=== PATIENT | male | born 1965 | race Caucasian/White ===

== ENCOUNTER 2016-06-01 17:33 | Emergency (ER) | payer OTHER ==
[~2016-06-01] VITALS: Ht 190.5 cm; Wt 88.5 kg
--- OUTSIDE RECORDS SUMMARY | 2016-06-01 17:38 | XMS REPORT | Continuity of Care Document ---
Author Author [facility] Address Unknown Phone Unavailable Allergies Active Description Code Type Severity Reaction Onset Reported/Identified Relationship to Patient Clinical Status Yes cephalexin Drug Allergy N/A N/A 01/29/2014 Medications Problems Date Dx Coded Attending Type Code Diagnosis Diagnosed By 07/31/2013 DAYAN ALEXANDER APRN 719.41 PAIN IN JOINT INVOLVING SHOULDER REGION 07/31/2013 ILDA NIELSON MD 719.41 PAIN IN JOINT INVOLVING SHOULDER REGION 07/31/2013 TONG FARLEY DO 719.41 PAIN IN JOINT INVOLVING SHOULDER REGION 12/05/2013 ILDA NIELSON MD 465.9 ACUTE UPPER RESPIRATORY INFECTIONS OF UNSPECIFIED SITE 12/05/2013 TONG FARLEY DO 465.9 ACUTE UPPER RESPIRATORY INFECTIONS OF UNSPECIFIED SITE 01/29/2014 TONG FARLEY DO 338.29 OTHER CHRONIC PAIN 01/29/2014 TONG FARLEY DO V70.0 ROUTINE GENERAL MEDICAL EXAMINATION AT A HEALTH CARE FACILITY 01/29/2014 TONG FARLEY DO V70.5 HEALTH EXAMINATION OF DEFINED SUBPOPULATIONS Procedures Code [place] [address] XRAY SHOULDER LEFT COMP 2 VIEWS 07/31/2013 Results Encounters ACCT No. Visit Date/Time Discharge Status Pt. Type Provider Facility Loc./Unit Complaint [id number] 01/29/2014 10:43:00 01/29/2014 23: 59:59 CLS Outpatient TONG FARLEY DO [id number] 12/05/2013 13:29:00 12/05/2013 23: 59:59 CLS Outpatient ILDA NIELSON MD [id number] 07/31/2013 08:34:00 07/31/2013 23: 59:59 CLS Outpatient DAYAN ALEXANDER APRN
[2016-06-01] MEDS ORDERED: HYDR-3816 PO (19:08)
[2016-06-01] MEDS ORDERED: CYCL10TA9 PO (19:08)
[2016-06-01] MEDS ORDERED: PRD20T PO (19:08)
--- NOTE | 2016-06-01 19:08 | ED Neck-Back Pain/Injury ---
General Chief Complaint: Upper Extremity Stated Complaint: R SIDE SHOULDER AND NECK SPASMS Nursing Triage Note: AMB TO ROOM REPORT THAT THIS WEEKEND WAS USING A CHAINSAW,AND SINCE THAN HAVING MUSCLE SPASM IN R SHOULDER Nursing Sepsis Screen: No Definite Risk Source of Information: Patient Exam Limitations: No Limitations History of Present Illness Time Seen by Provider: 18:51 Initial Comments here with report of muscle spasms and bilateral shoulders with right greater than left that spasms up into the neck on both sides. Onset on Wednesday after using a chainsaw and worsened over the weekend. 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 This caused him to jar his shoulders and neck and pain became worse. He has had previous history of injections to C5/C6 area many years ago but has not had 2 since. Denies numbness or tingling in his hands. Denies weakness. Denies balance or coordination problems. Denies difficulty with walking or going to the bathroom. Timing/Duration: 3-4 Days Severity: Moderate Pain/Injury Location: Back, Neck Associated Symptoms: muscle spasmsNo weakness, No sensory/motor loss, No loss of bladder control, No loss of bowel control Allergies and Home Medications Allergies Coded Allergies: cephalexin (Verified Allergy, Unknown, 06/01/16) Home Medications No Active Prescriptions or Reported Meds Constitutional: see HPINo chills, No fever, No weakness Respiratory: no symptoms reported Cardiovascular: no symptoms reported Gastrointestinal: no symptoms reported Musculoskeletal: see HPI back pain muscle pain muscle stiffnessNo muscle weakness, neck pain Psychiatric/Neurological: No Symptoms Reported Past Jodxyoc-Qmrtjn-Nwjskx Hx Patient Social History Alcohol Use: Denies Use Recreational Drug Use: No Smoking Status: Never a Smoker Recent Foreign Travel: No Contact w/Someone Who Travel: No Recent Infectious Disease Expo: No Recent Hopitalizations: No Surgeries HX Surgeries: Yes Surgeries: Appendectomy Respiratory Hx Respiratory Disorders: No Cardiovascular Hx Cardiac Disorders: No Neurological Hx Neurological Disorders: No Gastrointestinal Hx Gastrointestinal Disorders: No Endocrine Hx Endocrine Disorders: No Cancer Hx Cancer: No Psychosocial Hx Psychiatric Problems: No Blood Transfusions Hx Blood Disorders: No Reviewed Nursing Assessment Reviewed/Agree w Nursing PMH: Yes Family Medical History Significant Family History: No Pertinent Family Hx Physical Exam Vital Signs Vital Sign - Last 12Hours 06/01/16 18:05 Temp 97.9 Pulse 95 Resp 18 B/P 139/86 Pulse Ox 95 O2 Delivery Room Air Capillary Refill : Less Than 3 Seconds General Appearance: No Apparent Distress WD/WN Neck: Other (also spasms and tenderness to the lateral aspect of the neck to the shoulders with right greater than left.) Cardiovascular: Regular Rate, Rhythm No Murmur Respiratory: Lungs Clear Normal Breath Sounds Extremity: Normal Range of Motion Other (muscles along the area between the neck and shoulders bilaterally with tenderness and spasms) Neurologic/Psychiatric: Alert Oriented x3 No Motor/Sensory Deficits Other ( and good equal bilaterally and strong. Sensations intact bilaterally to and and legs.) Skin: Normal Color Warm/Dry Progress/Results/Core Measures Results/Orders Vital Signs/I&O Vital Sign - Last 12Hours 06/01/16 18:05 Temp 97.9 Pulse 95 Resp 18 B/P 139/86 Pulse Ox 95 O2 Delivery Room Air Blood Pressure Mean: 103 Progress Note : Progress Note seen and evaluated. Discharged home with return precautions. Patient verbalize understanding instructions and agreement with plan. Declines pain medicine here and states he will pick it up at the pharmacy. Departure Impression Impression: Primary Impression: Neck muscle strain Qualified Code: S16.1XXA - Strain of muscle, fascia and tendon at neck level, initial encounter Additional Impression: Muscle strain, shoulder region Qualified Code: S46.911A - Strain of unspecified muscle, fascia and tendon at shoulder and upper arm level, right arm, initial encounter Disposition: 01 HOME, SELF-CARE Condition: Improved Departure-Patient Inst. Decision time for Depature: 19:07 Referrals: [facility] (PCP/Family) Primary Care Physician Patient Instructions: Muscle Spasms (DC) Add. Discharge Instructions: All discharge instructions reviewed with patient and/or family. Voiced understanding. you may take ibuprofen 800 mg every 8 hours as needed for pain. Take other medications as directed. You may use the salon pass lidocaine patch to affected area per package directions. Rest tomorrow. Follow-up with your doctor and with an dairy management specialist as needed. Return for worse pain, weakness, numbness in her hands, difficulty with balance or going to the bathroom or other concerns as needed. Scripts Prednisone 20 Mg Tab40 Mg PO DAILY #14 TAB Prov:RENAN COTTO MD 06/01/16 Hydrocodone/Acetaminophen (Hydrocodon-Acetaminoph 7.5-325)1 Each Tablet1 Each PO Q6H #10 TAB Prov:RENAN COTTO MD 06/01/16 Cyclobenzaprine HCl 10 Mg Jqjhoq50 Mg PO Q8H PRN SPASMS #15 TAB Prov:RENAN COTTO MD 06/01/16 RENAN COTTO MD Jun 01, 2016 19:07
[2016-06-01 19:29] VITALS: BP 139/86
== END 2016-06-01 19:29 | disposition home or self-care (01) ==
LOC: EDUNIT# 17:33 → ER 17:35
DX: S16.1XXA Strain of muscle, fascia and tendon at neck level, initial encounter (principal); S46.911A Strain of unspecified muscle, fascia and tendon at shoulder and upper arm level, right arm, initial encounter; X50.3XXA Overexertion from repetitive movements, initial encounter; Y92.017 Garden or yard in single-family (private) house as the place of occurrence of the external cause; Y93.H9 Activity, other involving exterior property and land maintenance, building and construction; Y99.8 Other external cause status
CPT/HCPCS: 99282

== ENCOUNTER → 2016-06-15 | Outpatient (CLI) | payer OTHER ==
[~2016-06-15] MED LIST: CYCL10TA9 PO; HYDR-3816 PO; PRD20T PO
--- NOTE | 2016-06-15 17:12 | Diagnostic Imaging Report ---
PROCEDURE: MR imaging cervical spine without contrast. TECHNIQUE: Multiplanar, multisequence MR imaging of the cervical spine was performed without contrast. INDICATION: Right shoulder and neck pain. FINDINGS: The previous MRI cervical spine exam performed on 07/09/2009 noted a prominent disc protrusion to the left at C5-C6. This did result in severe spinal stenosis and encroachment of the exiting left nerve root. On this exam, the disc protrusion at the C5-C6 level seen previously is not identified. There is still a disc osteophyte complex eccentric to the left at C5-C6. The disc osteophyte complex indents the left ventral aspect of the thecal sac and narrows the AP diameter to approximately 9 mm. There is also narrowing of the neural foramen on the left at this level. There is no evidence for central stenosis at C6-C7, but there is narrowing of the neural foramina bilaterally at this level, particularly on the right. This finding has developed in the interval since the prior exam. Remainder of the cervical spine is unremarkable for spinal stenosis or nerve root encroachment. There is nothing seen in the cord or vertebral bodies to indicate an acute abnormality. There is no sign of a paraspinal mass. The expected carotid and vertebral flow voids are evident bilaterally. IMPRESSION: 1. The large disc protrusion to the left at C5-C6 seen previously is no longer evident. There is still a disc osteophyte complex on the left at this level and this does result in mild narrowing of the thecal sac. There is also some narrowing of the neural foramen on the left at this level. 2. In the interval since the previous exam, neuroforaminal narrowing on the right at C6-C7 has developed. There is no evidence for central stenosis at the C6-C7 level, however. 3. The remainder of the cervical spine is unremarkable for spinal stenosis or nerve root encroachment. 4. There is no sign of an acute bony abnormality or of a cord lesion. Dictated by: Dictated on workstation # [id number]
== END ==
LOC: RAD 12:14
PROVIDERS: ATTEND Nurse Practitioner Community Health
DX: M54.12 Radiculopathy, cervical region (principal)
CPT/HCPCS: 72141

== ENCOUNTER 2016-08-13 09:49 | Outpatient (CLI) | payer OTHER ==
[~2016-08-13] VITALS: Ht 190.5 cm; Wt 90.7 kg
[2016-08-13] MEDS ORDERED: MELO15TA39 PO (10:01)
[2016-08-13] MEDS ORDERED: HYDR-3816 PO (10:01)
[2016-08-13] MEDS ORDERED: GABA-488 PO (10:01)
[2016-08-13] MEDS ORDERED: CYCL10TA9 PO (10:01)
[2016-08-13 10:02] VITALS: BP 128/81
== END 2016-08-13 10:15 | disposition home or self-care (01) ==
LOC: PREOP 09:49
PROVIDERS: ATTEND Surgery
DX: Z01.818 Encounter for other preprocedural examination (principal); Z11.2 Encounter for screening for other bacterial diseases; D17.1 Benign lipomatous neoplasm of skin and subcutaneous tissue of trunk
CPT/HCPCS: 87081

== ENCOUNTER 2016-08-19 16:00 | Outpatient (RCR) | payer OTHER ==
[~2016-08-19 16:00] MED LIST changes: +GABA-488 PO; +MELO15TA39 PO
[2016-08-20] MEDS ORDERED: DOCU-143 PO (09:31)
[2016-08-20] MEDS ORDERED: HYDR-3812 PO (09:32)
== END 2016-08-19 16:54 | disposition home or self-care (01) ==
PROVIDERS: ATTEND Orthopaedic Surgery
DX: M54.2 Cervicalgia (principal)

== ENCOUNTER 2016-08-20 06:10 | Day surgery (SDC) | payer OTHER ==
[~2016-08-20] VITALS: Ht 190.5 cm; Wt 90.7 kg
[2016-08-20] MEDS: LACTATED RINGERS 1,000 ML IV PRN ×2 (06:45→09:50)
[2016-08-20 07:02] VITALS: BP 112/75
[2016-08-20] MEDS ORDERED: ONDANSETRON 4 MG/2 ML (SDV) Z0FRAN ONE (07:09)
[2016-08-20] MEDS ORDERED: LIDOCAINE PF 2% 5 ML (XYLOCAINE) VIAL ONE (07:09)
[2016-08-20] MEDS ORDERED: DEXAMETHASONE PF 10 MG/ML (DECADRON) VIAL ONE (07:09)
[2016-08-20] MEDS ORDERED: fentaNYL INJECTION 100 MCG/2 ML AMP ONE (07:09)
[2016-08-20] MEDS ORDERED: proPOfol 200 MG/20 ML (DIPRIVAN) VIAL IV ONE (07:09)
[2016-08-20] MEDS ORDERED: MIDAZOLAM 2 MG/2 ML (VERSED) VIAL ONE (07:10)
[2016-08-20] MEDS ORDERED: ROCURONIUM 50 MG/5 ML (ZEMURON) VIAL IV ONE (07:11)
[2016-08-20] MEDS ORDERED: BUPIVACAINE 0.5% 30 ML (SENSORCAINE) VIAL ONE (07:16)
[2016-08-20] MEDS ORDERED: LIDOCAINE 1% INJ 20 ML (XYLOCAINE) VIAL ONE (07:16)
[2016-08-20] MEDS ORDERED: CLINDAMYCIN 600 MG/4ML (CLEOCIN) VIAL ONE (07:34)
[2016-08-20] MEDS ORDERED: NS (IVPB) 50 ML ONE (07:34)
--- NOTE | 2016-08-20 07:43 | Progress Note-Pre Operative ---
Pre-Operative Progress Note H&P Reviewed The H&P was reviewed, patient examined and no changes noted. Date Seen by Provider: Aug 20, 2016 Time Seen by Provider: 07:35 Date H&P Reviewed: Aug 20, 2016 Time H&P Reviewed: 07:35 Pre-Operative Diagnosis: lipoma left shoulder, screening colonoscopy SANTHOSH HAYS DO Aug 20, 2016 7:43 am
[2016-08-20] MEDS ORDERED: CATHETER FLUSH 10 ML SYR IV PRN (07:45)
[2016-08-20] MEDS ORDERED: CLINDAMYCIN INJECTION 600 MG in NS (IVPB) 50 ML IV ONE (07:45)
[2016-08-20] MEDS ORDERED: SEVOFLURANE (ULTANE) 15 ML INHAL SOLN ONE (09:25)
[2016-08-20] MEDS ORDERED: DOCU-143 PO (09:31)
[2016-08-20] MEDS ORDERED: HYDR-3812 PO (09:32)
--- NOTE | 2016-08-20 09:35 | Discharge Inst-Simple/Standard ---
Discharge Inst-Standard Discharge Medications New, Converted or Re-Newed RX: RX on Chart Patient Instructions/Follow Up Plan of Care/Instructions/FU: Follow up for suture removal in 2 weeks Repeat colonoscopy in 10 years or sooner if chnages to current condition. Activity as Tolerated: No Discharge Diet: No Restrictions Other Inst to Patient Follow up Appt: Make appointment for 2 weeks. Instructions: No lifting greater than 10 pounds. No strenuous activity. May shower in 24 hours, no tub bath or soaking. Use incentive spirometer at home as directed. No Smoking Skin/Wound Care: May remove bandages. Keep incision clean and dry. Symptoms to Report: Appetite Changes, Extremity Discoloration, Numbness/Tingling, Swelling Increased , Bleeding Excessive, Eyesight Changes, Pain Increased, Urine Color Change, Constipation(Persistent), Fever over 101 degree F, Pain/Pressure in chest, Urinating Difficulty, Cough Up/Vomit Blood, Heart Beat Irreg/Pounding, Pain/ Pressure in jaw, Vaginal Bleeding Increase, Cramps in feet or legs, Lightheadedness, Pain/Pressure in shoulder, Diarrhea(Persistent), Memory Changes Suddenly, Questions/Concerns, Weight gain consecutive days, Dizziness/ Fainting, Nausea/Vomiting, Shortness of Breath, Weight gain over 2 pounds If questions or concerns contact your physician Or seek help at emergency department. KAREN MCHUGH APRN Aug 20, 2016 09:35
[2016-08-20] MEDS ORDERED: morphine INJ 10 MG/ML 1ML (SYR OR VIAL) ONE (09:38)
[2016-08-20] MEDS: morphine INJ 10 MG/ML 1ML (SYR OR VIAL) IVP PRN ×2 (09:42→09:47)
[2016-08-20] MEDS ORDERED: HYDROmorphone (DILAUDID) 2 MG/ML VIAL ONE (09:45)
--- NOTE | 2016-08-20 09:49 | Progress Note-Post Operative ---
Post-Operative Progess Note Surgeon (s)/Team Member (s) Surgeon SANTHOSH HAYS DO Team Member: na Pre-Operative Diagnosis lipoma left shoulder, screening colonoscopy Post-Operative Diagnosis lipoma left shoulder, normal colon Procedure & Operative Findings Date of Procedure 08/20/16 Procedure Performed/Findings excision lipoma left shoulder 7x 6 cm and colonoscopy Anesthesia Type general Estimated Blood Loss Estimated blood loss (mL): min Specimens/Packing Specimens Removed lipoma left shoulder SANTHOSH HAYS DO Aug 20, 2016 9:49 am
[2016-08-20] MEDS ORDERED: ONDANSETRON 4 MG/2 ML (SDV) Z0FRAN IVP PRN (10:00)
--- NOTE | 2016-08-20 10:11 | OPERATIVE REPORT ---
DATE OF SERVICE: 08/20/2016 PREOPERATIVE DIAGNOSES: 1. Lipoma left shoulder. 2. Screening colonoscopy. POSTOPERATIVE DIAGNOSES: 1. Lipoma left shoulder. 2. Normal colon. PROCEDURES: Excision of lipoma left shoulder 7 cm x 6 cm and colonoscopy. SURGEON: Santhosh Jaramillo DO. ANESTHESIA: General. ESTIMATED BLOOD LOSS: Minimal. COMPLICATIONS: None. INDICATIONS: The patient is a 50-year-old male who has not had a screening colonoscopy and he has lipoma of the left shoulder. He understands the risks and benefits of procedure and wished to proceed with procedure. Consent was signed and in the chart. PROCEDURE: The patient was taken to the operating suite, was prepped and draped in sterile fashion. Surgical pause was performed. An incision was made over the palpable lipoma. was used to dissect down through the skin into the subcutaneous tissues. The lipoma was circumferentially dissected around and removed. Hemostasis was achieved. The wound was irrigated with copious amounts of irrigation and then closed in a vertical mattress fashion using 2-0 Prolene. The area was then washed and dried, sterile bandage was applied. The patient was repositioned for colonoscopy. Digital rectal exam was performed. There were no palpable polyps, mass or ulcerations. The scope was inserted in the rectum and advanced all the way to the cecum with minimal difficulty. Prep was adequate with irrigation and suction. The scope was then slowly retracted back. There were no polyps, masses or ulcerations within the cecum, ascending, transverse, descending and sigmoid colon. In the rectum, there is no pathology noted. It was also retroflexed noting no other pathology. Scope was returned to its normal position, slowly withdrawn until completely removed noting no other pathology. The patient tolerated procedure well without any complications. He was taken to the recovery room in stable condition. RECOMMENDATIONS: The patient will followup for suture removal in approximately 10 to 14 days. The patient will need a repeat colonoscopy in 10 years unless family history of colon cancer which would then be 5 years. If he has any problems prior to that, he should be reevaluated at that time. Job ID: [id number] DocumentID: [id number] Dictated Date: 08/20/2016 09:51:29 Graphics Programmer Date: 08/20/2016 10:10:06 Dictated By: SANTHOSH JARAMILLO DO
[2016-08-20 10:35] VITALS: BP 122/84
[2016-08-20 11:05] VITALS: BP 125/85
[2016-08-20 11:20] VITALS: BP 125/85
== END 2016-08-20 11:20 | disposition home or self-care (01) ==
LOC: SDC 06:10
PROVIDERS: ATTEND Surgery
DX: Z12.11 Encounter for screening for malignant neoplasm of colon (principal); D17.1 Benign lipomatous neoplasm of skin and subcutaneous tissue of trunk
CPT/HCPCS: 88304